=== PATIENT | male | born 1970 | race Caucasian/White ===

== ENCOUNTER 2017-11-19 14:34 | Emergency (ER) | payer BC ==
[~2017-11-19] VITALS: Ht 190.5 cm; Wt 107.3 kg
[2017-11-19] MEDS ORDERED: OFLOXACIN10 M1 BOTH EYES (16:14)
[2017-11-19 16:25] VITALS: BP 125/78
== END 2017-11-19 17:12 | disposition home or self-care (01) ==
LOC: EME 14:34
DX: S05.01XA Injury of conjunctiva and corneal abrasion without foreign body, right eye, initial encounter (principal); H10.213 Acute toxic conjunctivitis, bilateral; T65.891A Toxic effect of other specified substances, accidental (unintentional), initial encounter; Y99.0 Civilian activity done for income or pay; Z88.5 Allergy status to narcotic agent; F17.200 Nicotine dependence, unspecified, uncomplicated
CPT/HCPCS: 99281; 99283